=== PATIENT | female | born 1950 | race Caucasian/White ===

== ENCOUNTER 2017-07-29 07:42 | Outpatient (CLI) | payer MEDICARE, BC ==
--- NOTE | 2017-07-29 08:38 | CT ---
CT PULMONARY LUNG SCAN OF CHEST WITHOUT CONTRAST: Date: 07/29/17 HISTORY: 28 year smoking history. History of nicotine dependence. TECHNIQUE: Multiple contiguous axial images were obtained in a CT of the chest without contrast per low dose can cer screening protocol. Sagittal and coronal reformats were performed. FINDINGS: No pulmonary nodules or infiltrates are seen in the lungs. No pneumothorax or pleural effusion seen. The heart is normal in size. No hilar or mediastinal lymphadenopathy are present. There are calcified , nonenlarged mediastinal lymph nodes. Degenerative changes are seen in the spine. A spinal stimulation device is seen in the mid thoracic s pine. The chest wall soft tissues are unremarkable. Hardware is seen in the cervical spine. IMPRESSION: Lung-RADS category 1 - negative. POS: [facility]
== END 2017-07-29 07:43 | disposition home or self-care (01) ==
LOC: CT 07:42
PROVIDERS: ATTEND Internal Medicine
DX: Z87.891 Personal history of nicotine dependence (principal)
CPT/HCPCS: G0297

== ENCOUNTER 2017-09-11 15:21 | Outpatient (CLI) | payer MEDICARE, BC | END 2017-09-11 15:22 | disposition home or self-care (01) | LOC: BICMAMMO 15:21 | PROVIDERS: ATTEND Internal Medicine | DX: Z12.31 Encounter for screening mammogram for malignant neoplasm of breast (principal) | CPT/HCPCS: 77063; 77067 ==

== ENCOUNTER 2017-10-13 11:01 | Emergency (ER) | payer MEDICARE, BC | END 2017-10-13 11:46 | disposition home or self-care (01) | LOC: ERS 11:01 | DX: S61.412A Laceration without foreign body of left hand, initial encounter (principal); Z79.899 Other long term (current) drug therapy; W26.0XXA Contact with knife, initial encounter | CPT/HCPCS: 12002 ==

== ENCOUNTER 2018-01-13 08:03 | Outpatient (CLI) | payer MEDICARE, BC ==
--- NOTE | 2018-01-13 11:27 | RAD ---
BIPHASIC UPPER GI: HISTORY: A 67-year-old female with nausea, epigastric pain, and IBS. FINDINGS: The stomach is grossly normal. There is unobstructed flow of contrast through the esophagus and into the stomach, duodenum, and jejunum. A small hiatal hernia is present. No obstructing mass or stric ture is seen. There is a moderate-sized diverticulum arising from the superior wall of the third por tion of the duodenum. No definite GE reflux was demonstrated during the Valsalva maneuver or spontan eously. IMPRESSION: 1. Small hiatal hernia. 2. Moderate-sized duodenal diverticulum. POS: [facility]
== END 2018-01-13 08:04 | disposition home or self-care (01) ==
LOC: RAD 08:03
PROVIDERS: ATTEND Internal Medicine Gastroenterology
DX: K58.9 Irritable bowel syndrome, unspecified (principal); R10.13 Epigastric pain; R11.0 Nausea; M25.551 Pain in right hip; K44.9 Diaphragmatic hernia without obstruction or gangrene; K57.10 Diverticulosis of small intestine without perforation or abscess without bleeding; M25.552 Pain in left hip
CPT/HCPCS: 74247

== ENCOUNTER 2018-01-14 15:04 | Outpatient (CLI) | payer MEDICARE, BC | END 2018-01-14 15:05 | disposition home or self-care (01) | LOC: BICRAD 15:04 | PROVIDERS: ATTEND Internal Medicine | DX: M79.89 Other specified soft tissue disorders (principal); M24.675 Ankylosis, left foot; M19.072 Primary osteoarthritis, left ankle and foot; M21.42 Flat foot [pes planus] (acquired), left foot ==

== ENCOUNTER 2018-01-22 12:36 | Outpatient (CLI) | payer MEDICARE, BC ==
--- NOTE | 2018-01-22 14:25 | ULT ---
LEFT LOWER EXTREMITY ARTERIOVASCULAR DUPLEX WITH COLOR-FLOW, SPECTRAL, AND DOPPLER IMAGING: HISTORY: A 67-year-old female with left foot swelling and leg pain. TECHNIQUE: Examination performed from the groin to the ankle, including visualization of the common femoral vein , profunda femoral, superficial femoral, popliteal, anterior tibial, posterior tibial, and dorsalis p maddy arteries. FINDINGS: At the common femoral artery, the peak systolic velocity is borderline at 140 cm per second. There i s triphasic waveform throughout the entire left lower extremity, which is within normal limits. IMPRESSION: No hemodynamically significant stenosis. If there is persistent clinical concern for arteriovascular disease of the left lower extremity, foll ow-up CT angiogram might be considered. POS: [facility]
== END 2018-01-22 12:37 | disposition home or self-care (01) ==
LOC: ULT 12:36
PROVIDERS: ATTEND Internal Medicine
DX: M79.89 Other specified soft tissue disorders (principal); I73.9 Peripheral vascular disease, unspecified; R60.9 Edema, unspecified
CPT/HCPCS: 93922; 93923

== ENCOUNTER 2018-01-23 08:31 | Outpatient (CLI) | payer MEDICARE, BC ==
--- NOTE | 2018-01-23 15:43 | NM ---
RADIONUCLIDE GASTRIC EMPTYING SCAN 01/23/18 HISTORY: 67-year-old female with epigastric pain. RADIOPHARMACEUTICAL: 2 millicuries technetium 99m sulfur colloid administered orally in scrambled eggs. FINDINGS: There is 52% emptying of the ingested gastric contents at one hour, 40% emptying at two hours, 54% em ptying at three hours and 61% emptying at four hours. There is gastroesophageal reflux. IMPRESSION: Delayed gastric emptying. POS: [facility]
== END 2018-01-23 08:32 | disposition home or self-care (01) ==
LOC: NM 08:31
PROVIDERS: ATTEND Internal Medicine Gastroenterology
DX: R10.13 Epigastric pain (principal)
CPT/HCPCS: 78264; A9541

== ENCOUNTER 2018-08-04 07:31 | Outpatient (CLI) | payer MEDICARE, BC ==
--- NOTE | 2018-08-04 08:59 | CT ---
NONCONTRAST ENHANCED CT CHEST LOW DOSE CT SCANNING: History: Z12.2. History of 28 years of smoking. History of nicotine dependence. Comparison: 07-29-17 FINDINGS: Noncontrast enhanced CT of the chest was performed. No evidence of lung parenchymal masses or lesions seen. No evidence of newly developed lesions noted. No evidence of pleural lesions seen. There does appear to be some distal esophageal dilatation and possible mucosal thickening. Some minimal coronary artery calcifications seen. No definite evidence of lymphadenopathy seen. IMPRESSION: Lung RADS category 1 - negative exam. POS: [facility]
== END 2018-08-04 07:32 | disposition home or self-care (01) ==
LOC: CT 07:31
PROVIDERS: ATTEND Internal Medicine
DX: Z87.891 Personal history of nicotine dependence (principal)
CPT/HCPCS: G0297

== ENCOUNTER 2018-09-16 09:58 | Outpatient (CLI) | payer MEDICARE, BC ==
--- NOTE | 2018-09-16 14:59 | MMO ---
FILMS COMPARED: The present examination has been compared to prior imaging studies performed at [facility] on 06/24/2006, 09/03/2012 and 09/11/2017, and at [facility] on 01/29/2001, 12/09/2013 and 12/16/2014. MAMMOGRAM FINDINGS: There are scattered fibroglandular densities. There are benign appearing calcifications seen in both breasts. There are no suspicious masses, calcifications or areas of architectural distortion. IMPRESSION: CALCIFICATIONS IN BOTH BREASTS ARE BENIGN. A ROUTINE FOLLOW-UP MAMMOGRAM IN 1 YEAR IS RECOMMENDED. ACR BI-RADS Category 2 - Benign finding
== END 2018-09-16 09:59 | disposition home or self-care (01) ==
LOC: BICMAMMO 09:58
PROVIDERS: ATTEND Internal Medicine
DX: Z12.31 Encounter for screening mammogram for malignant neoplasm of breast (principal); R92.1 Mammographic calcification found on diagnostic imaging of breast
CPT/HCPCS: 77063; 77067

== ENCOUNTER 2018-11-04 21:47 | Emergency (ER) | payer MEDICARE, BC ==
[2018-11-05] MEDS ORDERED: HYDROcodone/Acetaminophen 10/325 mg Tablet ONE (01:49)
[2018-11-05] MEDS ORDERED: Diazepam 5 MG TAB ONE (02:58)
== END 2018-11-05 03:28 | disposition home or self-care (01) ==
LOC: ERS 21:47
DX: G89.29 Other chronic pain (principal); M54.5 Low back pain

== ENCOUNTER 2018-11-07 07:02 | Day surgery (SDC) | payer MEDICARE, BC ==
[2018-11-06 13:58] VITALS: BMI 23.6
--- NOTE | 2018-11-07 08:57 | RAD ---
Exam: Lumbar myelogram HISTORY: Lumbar spinal stenosis COMPARISON: 02/02/2014 FINDINGS: 2 views of lumbar spine associate professor of education radiograph demonstrates 5 lumbar type vertebral bodies. There is stable rightward curvature of the lumbar spine. On the lateral projection, no significant spondylolisthesis or spondylolysis. Extensive dorsal column stimulators are noted, incompletely evalu ated. The distal tips appear to be at the level lower thoracic spine. Successful lumbar puncture for intrathecal contrast administration. Total of 10 cc of Isovue-M 200 co ntrast was administered intrathecally. There are no immediate or postprocedure complications. Lumbar puncture was performed at the L3-L4 level. TECHNIQUE: Consent obtained performing lumbar puncture for intrathecal contrast administration, 40 aracelis mbar myelogram. Patient's back was evaluated. The L3-L4 level was deemed appropriate. Skin was prepped and draped in a sterile fashion. 1% lidocaine, buffered with sodium bicarbonate was used for local anesthesia. Under fluoroscopic guidance, a 22-gauge spinal needle was advanced into the CSF space. There is prompt flow of clear CSF to the hub of the needle. Via a short tubing catheter, a tot al of 10 cc of Isovue-M 200 contrast was administered intrathecally. No immediate or postprocedural complications IMPRESSION: Successful lumbar puncture for lumbar myelogram.
[2018-11-07] MEDS ORDERED: Prevnar 13-Val Conj/PF 0.5 ML SYRINGE IM ONE (09:00)
--- NOTE | 2018-11-07 10:40 | CT ---
POST MYELOGRAM LUMBAR SPINE CT: Date: 11/07/18 COMPARISON: 02/02/14. HISTORY: Lumbar spinal stenosis. FINDINGS: There are five lumbar-type vertebral bodies. Lumbar spine vertebral body height is maintained. There is no fracture. Mild leftward curvature of the lower lumbar spine. Vacuum disc phenomenon at L5-S1, as well as T11-T12. Stable 1.0 cm nodule in the left adrenal gland, likely representing a small adenoma. Visualized alime ntary canal is unremarkable. No retroperitoneal mass, lymphadenopathy, or hematoma. Conus medullaris terminates at the inferior aspect of T12. T11-T12: No high grade central canal stenosis or high grade neural foraminal narrowing. T12-L1; No significant central canal stenosis or foraminal narrowing. L1-L2: No significant central canal stenosis. Right neural foramen and left neural foramen are paten t. L2-L3: No significant central canal stenosis. Neural foramina are patent bilaterally. L3-L4: Mild loss of disc space height. Ligamentum flavum thickening and facet hypertrophy do not cau se any significant central canal stenosis. However, there is narrowing of the right subarticular zone secondary to disc material and posterior element hypertrophy. There is mass effect without obscurati on of the traversing right L4 nerve root. Mild to moderate right foraminal narrowing. Left neural for amen is minimally narrowed. L4-L5: No significant posterior disc abnormality. No significant central canal stenosis. Moderate ri ght and moderate to severe left foraminal narrowing. L5-S1: Vacuum disc phenomenon. No significant central canal stenosis. Moderate bilateral foraminal n arrowing. IMPRESSION: 1. Degenerative changes of the lumbar spine as above. There is no evidence of high grade central can al stenosis. However, there is narrowing of the right subarticular zone at L3-L4 with some mass effec t upon the traversing right L4 nerve root. The degree of stenosis in the right subarticular zone has slightly progressed when compared to the previous examination. 2. There are varying degrees of neural foraminal narrowing as detailed above. POS: [facility]
== END 2018-11-07 10:10 | disposition home or self-care (01) ==
LOC: RAD 07:02
PROVIDERS: ATTEND Nurse Practitioner Family
PROC: B02B1ZZ Computerized Tomography (CT Scan) of Spinal Cord using Low Osmolar Contrast (ICD-10-PCS; principal; 2018-11-07)
DX: M48.061 Spinal stenosis, lumbar region without neurogenic claudication (principal); Z79.899 Other long term (current) drug therapy; Z88.0 Allergy status to penicillin; Z88.5 Allergy status to narcotic agent; Z96.89 Presence of other specified functional implants
CPT/HCPCS: 62304; 72132

== ENCOUNTER 2019-08-04 14:32 | Inpatient (IN) | payer MEDICARE, BC ==
--- NOTE | 2019-08-04 15:14 | CT ---
CT HEAD WITHOUT IV CONTRAST COMPARISON: 07/06/2015 HISTORY: Headache the started on Saturday. Headache is greater than typical migraine headache. TECHNIQUE: Axial CT imaging at 5 mm intervals from vertex through skull base without contrast FINDINGS: There is an oval-shaped area of increased density suggestive of a hemorrhage near the expected locati on of the ACOM position of the anterior cerebral artery in the midline. This area of hemorrhage measures 18 mm x 8 mm. Slight adjacent vasogenic edema is noted. No additional area of hemorrhage is identified. There is a small low-density focus seen within the anterior aspect left thalamus likely related to a lacunar infarction of indeterminate age. Low-density focus is seen in the inferior aspect left basal ganglia also seen on prior study in 2014 and may represent a remote lacunar infarction. There i s no evidence of an acute cortical infarction, mass effect, or midline shift. Visualized paranasal sinuses are clear. Osseous structures appear intact. IMPRESSION: 1. Midline hemorrhage near the ACOM position anterior cerebral artery which could be related to hemor rhage secondary to aneurysm. CT angiogram head is recommended for further evaluation.. 2. 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 3. Above findings discussed with Tosin Hutchinson, physician's admissions assistant in the emergency department on 07/16 at 1506 hours.
[2019-08-04] MEDS ORDERED: Iopamidol-370 76% 500 ML 1 ML ONE (15:23)
[2019-08-04] MEDS ORDERED: niCARdipine 25 MG in Sodium Chloride 0.9% 250 ML 240 ML IVPB SCH (15:30)
[2019-08-04 15:34] LABS: Hemoglobin 14.2 g/dL (12.0-16.0); Mean Corpuscular HGB CONC 32.5 g/dL (32.0-36.0); Mean Corpuscular Hemoglobin 32.2 pg (27.0-31.0); Mean Corpuscular Volume 98.9 fL (78.0-98.0); Mean Platelet Volume 7.3 fL (7.4-10.4); Platelet Count 343 thou/uL (130-400); RBC Distribution Width 12.6 % (11.5-14.5); Red Blood Cell (RBC) Count 4.43 mill/uL (4.20-5.40)
[2019-08-04 15:36] LABS: ALT (SGPT) 80 U/L (8-55); AST (SGOT) 44 U/L (5-34); Albumin 4.3 g/dL (3.4-4.8); Alkaline Phosphatase 122 U/L (40-110); Anion Gap 11 mmol/L (10-20); BUN (Urea Nitrogen) 8 mg/dL (9.8-20.1); Bilirubin, Total 0.3 mg/dL (0.2-1.2); Calc. Creatinine Clearance 0 mL/min (70-130); Calcium 9.6 mg/dL (7.8-10.44); Carbon Dioxide 28 mmol/L (23-31); Chloride 105 mmol/L (98-107); Estimated GFR-MDRD 65; Globulin 2.8 g/dL (2.4-3.5); Glucose 111 mg/dL (83-110); Protein, Total 7.1 g/dL (6.0-8.3); Sodium 140 mmol/L (136-145)
[2019-08-04 15:43] LABS: INR-International Normal Ratio 0.9; PTT 27.6 SEC (22.9-36.1); Prothrombin Time 12.4 SEC (12.0-14.7)
--- NOTE | 2019-08-04 15:48 | CT ---
CT ANGIOGRAM OF BRAIN WITH CONTRAST AND 3D REFORMATTED IMAGING: DATE: 08/04/2019 3:07 PM HISTORY: Subarachnoid hemorrhage concern for a comminuted aneurysm COMPARISON: CT of the brain dated August 04, 2019 TECHNIQUE: Iodinated IV contrast injected. Bolus chasing technique scan performed through the head. Coronal and sagittal 3-D MIP reconstructions. FINDINGS: Right ICA: Patent. Right MCA: Patent. Right HERNAN: Patent. ACOM: There is an 8.3 x 4.6 x 5.7 mm bilobed aneurysm protruding off the superior margin of the ante rior communicating artery. The subarachnoid hemorrhage is centered along the right lateral aspect of the aneurysm, extending into the anterior interhemispheric fissure. Left ICA: Patent. Left MCA: Patent. Left HERNAN: Patent. PCOMs: Left P-comm is not seen which is likely developmental variant. The right P-comm is patent. Vertebral arteries: The right vertebral artery is diminutive. Left vertebral artery is dominant. Bot h vertebral arteries appear patent. Basilar Artery: Patent. sandfill operator surface: Patent. Incidentals: None. IMPRESSION: 1. 8.3 x 4.6 x 5.7 mm bilobed aneurysm protruding off the superior margin of the anterior communicati ng artery with adjacent subarachnoid hemorrhage.
[2019-08-04 16:05] LABS: Band 3 % (5-11); Eosinophils 4 % (0-10); Lymphocytes 10 % (21-51); MDiff Complete? YES; Macrocytosis SLIGHT = 6-15 cells (100X) (0-5/hpf); Monocytes 8 % (0-10); Neutrophil 32 % (42-75); Platelet Morphology Comment Appears Adequate; Polychromasia SLIGHT = 2-3 cells (100X) (0-2/hpf); Reactive Lymphocytes 42 % (0-10); Reflex for Review?? YES
[2019-08-04] MEDS ORDERED: Acetaminophen 325 MG TAB PO PRN (16:58)
[2019-08-04] MEDS ORDERED: Labetalol HCl 100 MG/20 ML VIAL SLOW IVP PRN (16:58)
[2019-08-04] MEDS ORDERED: diphenhydrAMINE 50 MG CAP PO PRN (16:58)
[2019-08-04] MEDS ORDERED: Docusate 100 MG CAP PO PRN (16:58)
[2019-08-04] MEDS ORDERED: hydrALAZINE 20 MG/ML VIAL SLOW IVP PRN (16:58)
[2019-08-04 18:22] VITALS: BMI 22.7
[2019-08-04] MEDS: niMODipine 30 MG CAP PO SCH ×2 (18:40→21:40)
[2019-08-04] MEDS: Sodium Chloride 0.9% 1,000 ML IV SCH (18:41)
[2019-08-04] MEDS: Famotidine 20 MG TAB PO SCH (21:40)
--- NOTE | 2019-08-04 23:21 | CT ---
Exam: Head CT without contrast HISTORY: Subarachnoid hemorrhage. Follow-up exam. COMPARISON: 08/04/2019 2:59 PM FINDINGS: Hemorrhage: Redemonstration of essentially stable hemorrhage just to the right of midline, measuring 1.5 x 0.4 cm. Small focus of subarachnoid hemorrhage is noted in the interpeduncular cistern. Small focus of hemorrhage is also noted in the left Sylvian fissure. Stable subarachnoid blood along the mi dline interhemispheric sulci, anteriorly. No new areas of intracranial hemorrhage are appreciated. Brain parenchyma: Cortical leggett-white matter differentiation is preserved. No mass effect or midline shift. Basilar cisterns are patent.Stable white matter hypodensities due to chronic small vessel ischemic change Ventricular system: No change in the size of ventricular system. No evidence of hydrocephalus. Calvarium: Intact. Sinuses and mastoid air cells: Adequate aeration. IMPRESSION: Essentially stable intracranial hemorrhage. Transcribed Date/Time: 08/05/2019 11:50 PM
[2019-08-05] MEDS: niMODipine 30 MG CAP PO SCH ×4 (02:38→15:25)
[2019-08-05] MEDS: Sodium Chloride 0.9% 1,000 ML IV SCH ×2 (02:39→10:19)
[2019-08-05 04:04] LABS: #Basophils 0.1 thou/uL (0.0-0.2); #Eosinphils 0.2 thou/uL (0.0-0.7); #Lymphocytes 4.2 thou/uL (1.20-3.40); #Monocytes 0.8 thou/uL (0.11-0.59); #Neutrophils 3.6 thou/uL (1.40-6.50); %Basophils 1.4 % (0.0-1.0); %Eosinophils 2.8 % (0.0-10.0); %Lymphocytes 46.5 % (21.0-51.0); %Monocytes 8.6 % (0.0-10.0); %Neutrophils 40.7 % (42.0-75.0); Hemoglobin 13.3 g/dL (12.0-16.0); Mean Corpuscular HGB CONC 32.1 g/dL (32.0-36.0); Mean Corpuscular Hemoglobin 31.6 pg (27.0-31.0); Mean Corpuscular Volume 98.6 fL (78.0-98.0); Mean Platelet Volume 7.4 fL (7.4-10.4); Platelet Count 319 thou/uL (130-400); RBC Distribution Width 12.5 % (11.5-14.5); Red Blood Cell (RBC) Count 4.21 mill/uL (4.20-5.40); White Blood Cell (WBC) Count 8.9 thou/uL (4.8-10.8)
[2019-08-05 04:24] LABS: Anion Gap 10 mmol/L (10-20); BUN (Urea Nitrogen) 6 mg/dL (9.8-20.1); Calc. Creatinine Clearance 90 mL/min (70-130); Calcium 8.5 mg/dL (7.8-10.44); Carbon Dioxide 25 mmol/L (23-31); Chloride 109 mmol/L (98-107); Estimated GFR-MDRD 87; Glucose 103 mg/dL (83-110); Potassium 3.5 mmol/L (3.5-5.1); Sodium 140 mmol/L (136-145)
--- NOTE | 2019-08-05 07:26 | HP ---
HISTORY OF PRESENT ILLNESS: Ms. Pradhan is a very pleasant 69-year-old woman, who presents to the emergency department at [facility] for evaluation of 48 hours of significant headache. She states onset immediately when getting up out of bed in the middle of night and had a pulsatile pounding headache worse than she has ever had. She has also had migraines since age 11 and states that this is far worse and far different than any of those. CT scan performed in the department reveals what appears to be subarachnoid and intraparenchymal hemorrhage. 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 Otherwise, she is awake and providing full history to me. She denies taking any blood thinners currently other than occasional Aleve, but did not take it recently. PAST MEDICAL HISTORY: Significant for unspecified endocrine illness, fibromyalgia, IBS, migraine headaches, restless legs syndrome, hypothyroidism. PAST SURGICAL HISTORY: Tonsillectomy, cervical decompression, carpal tunnel. Bilateral knees and feet, unspecified. Dorsal column stimulator placement, appendectomy, cholecystectomy, hysterectomy, hiatal hernia x3. CURRENT MEDICATIONS: 1. Methocarbamol. 2. Linzess. 3. Breo Ellipta. 4. Triamcinolone. 5. Levothyroxine. 6. Gabapentin. 7. Venlafaxine. 8. Vitamin B12. ALLERGIES: AMOXICILLIN AND HYDROCODONE. PHYSICAL EXAMINATION: The patient is alert and oriented x3. GCS 15. All movements of bilateral upper and lower extremities are intact and 5/5 strength. Pupils are equal, round, and reactive to light. Extraocular movements are intact. Cranial nerves 2 through 12 are grossly intact and normally functioning. ASSESSMENT: Aneurysmal subarachnoid hemorrhage. PLAN: At this time, we will admit the patient to the ICU under our service with q.1 hour neuro checks. Systolic pressures need to be held under 140. We will repeat a CT scan around 10 or 11 o'clock this evening not expanding treatment otherwise. Consultations ordered to Hospitalist Medicine and to the Pulmonary Critical Care Service. We will start her on high-flow normal saline. She will likely need a urinary catheter so that we can track the in's and out's q.1 hour. I discussed with the patient and at bedside that she will need a traditional angiogram in the morning, most likely coiling of this aneurysm with Dr. Lovelace. Will likely meet him in the morning and discuss this plan further with them. The patient has expressed understanding. Head of bed going to be elevated 30 degrees. She can have sips of water this evening, but at midnight will need to be held n.p.o. entirely. This plan was discussed with Dr. Lovelace who is in agreement. Job ID: [id number]
[2019-08-05] MEDS ORDERED: Heparin (Artline) 1,500 ML ONE (08:20)
[2019-08-05] MEDS ORDERED: Heparin 10,000 UNITS/1 ML VIAL ONE (08:21)
[2019-08-05] MEDS ORDERED: Prevnar 13-Val Conj/PF 0.5 ML SYRINGE IM ONE (09:00)
[2019-08-05] MEDS: Famotidine 20 MG TAB PO SCH (10:19)
[2019-08-05] MEDS ORDERED: Fentanyl 100 MCG/2 ML VIAL ONE (11:08)
--- NOTE | 2019-08-05 11:09 | PRG ---
DATE OF SERVICE: 08/05/2019 Ms. Pradhan is a 69-year-old female, admitted yesterday afternoon after experiencing 2 days of significant headache. She does have a history of migraines. She is contended with for decades. This headache was atypical. The headache began on Saturday of this week and did not relent, and so she eventually presented to the ER yesterday, which was Saturday. She underwent a CT examination of the head, which showed evidence of subarachnoid hemorrhage and a small intraparenchymal hematoma at the location of the anterior communicating segment. She subsequently had a CT angiogram performed, which confirmed suspicions of an anterior communicating artery region aneurysm. She was then admitted to the ICU for ongoing evaluation and management. The initial head CT showed no evidence concerning for hydrocephalus. Her neurologic exam has been stable and appears to be baseline for her. She is alert and oriented x5. She moves all 4 extremities quite well. I discern no abnormality on her exam. I met with her and her this morning and discussed again the imaging, the diagnosis, and treatment options. I discussed with them both open craniotomy as well as endovascular treatment of the aneurysm and then our preference would be to move first toward endovascular treatment. I discussed with her all the risks, benefits, and alternatives of the procedure, namely the risks of most significance would be rupture of the aneurysm during treatment and a thromboembolic event during or shortly after treatment or potential prolapse of coils into the parent artery causing an ischemic stroke. I also reviewed with her many of the comorbidities associated with aneurysmal subarachnoid hemorrhage, for which she will need to continue our hospitalization and be watchful for which would include hydrocephalus and vasospasm. The plan this morning is to bring her down for cerebral angiography, and if morphology and size allow, endovascular coiling of the aneurysm. She will be placed under general anesthesia. She will return to the ICU thereafter. Job ID: [id number]
[2019-08-05] MEDS ORDERED: Phenylephrine HCL 10 MG/ML VIAL ONE (12:34)
[2019-08-05] MEDS ORDERED: PROPOFOL 200 MG/20 ML VIAL ONE (12:47)
[2019-08-05] MEDS ORDERED: Glycopyrrolate 0.2 MG/ML 5 ML SYRINGE ONE (12:47)
[2019-08-05] MEDS ORDERED: Rocuronium Bromide 10 MG/ML (10ML VIAL) ONE (12:47)
[2019-08-05] MEDS ORDERED: PHENYLEPHRINE-NS 100 MCG/ML 10 ML SYRINGE ONE (12:47)
[2019-08-05] MEDS ORDERED: ePHEDrine/0.9% NaCl/PF SYRINGE 50 mg/10 ml ONE (12:47)
[2019-08-05] MEDS ORDERED: Lidocaine 1% PF 5 ML VIAL ONE (12:47)
--- NOTE | 2019-08-05 13:31 | PDOC.HOSPP ---
- Subjective Encounter Date: 08/05/19 Encounter Time: 12:00 Subjective: awake, headache is better is moving all extremities no chest pain or palp or sob at bedside Had sudden onset of thunderclap headache on saturday, was unlike her usual migraine headaches Quit smoking 6yrs back prior to which 1/2 pack x 30 yrs, no alc or drug use mother at 94 yrs from natural causes father at 56yrs from alc use and complications she ambulate with out any assitive devices sees for prolapsed disc issues prior stress test done with was normal per patient (yrs ago?) - Objective Vital Signs & Weight: Vital Signs (12 hours) Temp Pulse Ox 08/05/19 08:00 96 08/05/19 07:00 98.3 F 08/05/19 04:00 98.2 F Weight Weight 161 lb 9.581 oz Most Recent Monitor Data Heart Rate from ECG 60 NIBP 100/81 NIBP BP-Mean 87 Respiration from ECG 13 SpO2 96 I&O: 08/04/19 08/05/19 08/06/19 06:59 06:59 06:59 Intake Total 1575 0 Output Total 800 220 Balance 775 -220 Result Diagrams: 08/05/19 03:55 08/05/19 03:55 Hospitalist ROS - Review of Systems Constitutional: reports: malaise. denies: fever, chills, sweats, weakness, other Eyes: reports: vision change ENT: denies: ear pain, ear discharge, nose pain, nose discharge, nose congestion , mouth pain, mouth swelling, throat pain, throat swelling, other Respiratory: reports: cough, dry. denies: shortness of breath, hemoptysis, SOB with excertion, pleuritic pain, sputum, wheezing, other Cardiovascular: denies: chest pain, palpitations, orthopnea, paroxysmal noc. dyspnea, edema, light headedness, other Gastrointestinal: denies: nausea, vomiting, abdominal pain, diarrhea, constipation, melena, hematochezia, other Genitourinary: denies: dysuria, frequency, incontinence, hematuria, retention, other Musculoskeletal: denies: neck pain, shoulder pain, arm pain, back pain, hand pain, leg pain, foot pain, other Skin: denies: rash, lesions, ching, bruising, other Neurological: reports: weakness All other systems reviewed; all pertinent +/- noted in HPI/Subj - Medication Medications: Active Medications Generic Name Dose Route Start Last Admin Trade Name Liv PRN Reason Stop Dose Admin Famotidine 20 mg 08/04/19 21:00 08/05/19 10:19 Pepcid PO Not Given Q12HR CAYLA Sodium Chloride 1,000 mls @ 125 mls/hr 08/04/19 17:00 08/05/19 10:19 Normal Saline 0.9% IV Not Given .Q8H CAYLA Nimodipine 60 mg 08/04/19 17:00 08/05/19 10:19 Nimodipine PO Not Given Q4HR CAYLA - Exam General Appearance: NAD, awake alert Eye: PERRL, anicteric sclera ENT: no oropharyngeal lesions, moist mucosa Neck: symmetric, no JVD Heart: RRR, no murmur Respiratory: no wheezes, no rales Gastrointestinal: soft, non-tender, non-distended, normal bowel sounds Extremities: no cyanosis, no edema Neurological: cranial nerve grossly intact, no focal deficits Psychiatric: normal affect, A&O x 3 Hosp A/P (1) SAH (subarachnoid hemorrhage) Code(s): I60.9 - NONTRAUMATIC SUBARACHNOID HEMORRHAGE, UNSPECIFIED Status: Acute (2) acom aneurysm Status: Acute (3) ICH (intracerebral hemorrhage) Code(s): I61.9 - NONTRAUMATIC INTRACEREBRAL HEMORRHAGE, UNSPECIFIED Status: Acute Qualifiers: Intracerebral hemorrhage etiology: nontraumatic Cerebral hemorrhage location: cerebral hemisphere, subcortical portion Laterality: right Qualified Code(s): I61.0 - Nontraumatic intracerebral hemorrhage in hemisphere, subcortical (4) COPD (chronic obstructive pulmonary disease) Status: Suspected Qualifiers: COPD type: chronic bronchitis (5) Chronic back pain Code(s): M54.9 - DORSALGIA, UNSPECIFIED; G89.29 - OTHER CHRONIC PAIN Status: Chronic Qualifiers: Back pain location: low back pain (6) IBS (irritable bowel syndrome) Status: Chronic Qualifiers: Irritable bowel syndrome type: with constipation Qualified Code(s): K58.1 - Irritable bowel syndrome with constipation (7) Hypothyroidism Code(s): E03.9 - HYPOTHYROIDISM, UNSPECIFIED Status: Acute (8) Dyslipidemia Code(s): E78.5 - HYPERLIPIDEMIA, UNSPECIFIED Status: Acute (9) Anxiety disorder Code(s): F41.9 - ANXIETY DISORDER, UNSPECIFIED Status: Acute Qualifiers: Anxiety disorder type: generalized anxiety disorder Qualified Code(s): F41.1 - Generalized anxiety disorder - Plan is going for coiling of Ant communicating art aneurysm by today stable ich/sah, no focal motor deficits BP is stable is npo for procedure continue current prn htn meds as ordered will f/u
[2019-08-05] MEDS ORDERED: Iopamidol 370 76% 100 ML VIAL ONE (13:56)
[2019-08-05 14:02] VITALS: TEMP 98
--- NOTE | 2019-08-05 14:39 | CON ---
DATE OF CONSULTATION: HISTORY OF PRESENT ILLNESS: This is a 69-year-old female, who is in the ICU, status post intracerebral hemorrhage, reason for consultation. She is due to see Neurosurgery. Her at the bedside states she had a headache on Saturday, history of migraine. So, apparently, called a doctor on Saturday as symptoms are not any better, persistent headache, brought to the ER, where it showed an intracerebral hemorrhage. She is a nonsmoker. She has multiple medical problems. PAST MEDICAL HISTORY: Pertinent for; 1. Hypothyroidism. 2. Fibromyalgia. 3. Migraine headaches. 4. Irritable bowel syndrome. 5. Anxiety. PAST SURGICAL HISTORY: Carpal tunnel, bilateral knees and feet, nerve stimulation, gallbladder, appendix, hysterectomy, hiatal hernia. HOME MEDICATIONS: Include; 1. Linzess. 2. Breo inhaler 100/25 one puff a day. 3. Synthroid 50. 4. Gabapentin 600 four times a day. 5. Venlafaxine 75 once a day. 6. B12. ALLERGIES: AMOXIL AND HYDROCODONE. PHYSICAL EXAMINATION: GENERAL: She is awake, alert, and responsive. VITAL SIGNS: Stable. Sats on room air, pulse , respirations 18, blood pressure 130/80. CHEST: No wheezing or crackles. CARDIAC: Normal S1, S2. No gallops. ABDOMEN: No masses. LABORATORY DATA: Otherwise shows 8000 white count, H and H of 13 and 41, platelet count is normal. Renal function is normal. Sodium is normal. Liver function, slightly elevated. AST 80. DIAGNOSTIC DATA: CT angio of head shows 8.3 x 4.6 x 5.7 mm bilobed aneurysm protruding in the superior margin of the anterior communicating artery. IMPRESSION: 1. Intracerebral hemorrhage, frontal, secondary to anterior communicating aneurysm. 2. Hypothyroidism. 3. Fibromyalgia. 4. Chronic pain. 5. Long-term smoker, quit 20 years ago. PLAN: Input from Neurosurgery. Pulmonary will follow in the ICU. Consultation note, 70 minutes, 50% direct patient care. Job ID: [id number]
--- NOTE | 2019-08-06 22:49 | CCL ---
DATE OF SERVICE: 08/05/19 SURGEON: Mehul Lovelace M.D. STAND GRINDER: None. INDICATION: Aneurysmal subarachnoid hemorrhage. 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 PROCEDURE: Cerebral angiography with intention to treat. ANESTHESIA: General. TECHNIQUE: The patient is brought to the angiogram suite and placed under general anesthesia. She was placed on the table in the supine position. Both groins were prepped and draped in the usual sterile fashion. 1% lidocaine was used to inject the right groin. A micropuncture set was used to gain access to the right common femoral artery. Using a Seldinger technique, 5 Sinhala shuttle select catheter passed over a long diagnostic catheter passed a Manpackszen guide wire was advanced into the aortic arch where the left internal carotid artery was selectively catheterized. An AP and lateral angiogram as well as a 3D rotational angiogram were successfully performed. The transfer of images from the 3D system to our work station would not function. As such, we could not reconfigure an orientation for treatment and therefore could not safely proceed. This was despite numerous efforts to remedy the problem. As such, I made the decision to abort the procedure with the intent of now transferring her to an outside facility. IMPRESSION: The patient underwent successful angiography. There is no successful treatment performed. Angiography confirms the presence of an anterior communicating artery aneurysm with what appears to be at least two daughter sacs emanating along the inferior lobule. The aneurysm measures approximately 8 x 7 mm. The relative orientation of the aneurysm with respect to the A2 segment is difficult to discern without 3D reconstruction. [facility]ENTER[facility]
== END 2019-08-05 15:23 | disposition short-term general hospital (02) | DRG 66 ==
LOC: ERS 14:32 → CCU 17:05
PROVIDERS: ADMIT Neurological Surgery; ATTEND Emergency Medicine
PROC: B31NZZZ Fluoroscopy of Other Upper Arteries (ICD-10-PCS; principal; 2019-08-05)
DX: I60.2 Nontraumatic subarachnoid hemorrhage from anterior communicating artery (principal); G43.909 Migraine, unspecified, not intractable, without status migrainosus; M79.7 Fibromyalgia; E03.9 Hypothyroidism, unspecified; Z90.49 Acquired absence of other specified parts of digestive tract; Z90.710 Acquired absence of both cervix and uterus; Z98.890 Other specified postprocedural states; Z79.899 Other long term (current) drug therapy; Z88.6 Allergy status to analgesic agent; Z88.8 Allergy status to other drugs, medicaments and biological substances; R40.2412 Glasgow coma scale score 13-15, at arrival to emergency department; F41.9 Anxiety disorder, unspecified; G89.29 Other chronic pain; Z87.891 Personal history of nicotine dependence; K58.1 Irritable bowel syndrome with constipation; J42 Unspecified chronic bronchitis
CPT/HCPCS: 36216; 36415; 70450; 70496; 80048; 80053; 85025; 85060; 85347; 85610; 85730; 93005; C1887; J1644; J2001; J2370; J2704; J3010; J7050; Q9967

== ENCOUNTER 2019-08-19 12:37 | Outpatient (CLI) | payer MEDICARE, BC ==
--- NOTE | 2019-08-19 14:25 | RAD ---
3 VIEWS SACRUM/COCCYX: Date: 08/19/2019 COMPARISON: None. HISTORY: Sacral pain. FINDINGS: 3 views of the sacrum/coccyx shows no evidence of sacral or coccygeal fracture. There is right sacroi liac hardware. A spinal stimulation device is partially visualized. Degenerative changes are seen in the lower lumbosacral spine. IMPRESSION: 1. No significant sacral abnormality. 2. Postsurgical changes from right sacroiliac fusion. POS: CET
== END 2019-08-19 12:38 | disposition home or self-care (01) ==
LOC: BICRAD 12:37
PROVIDERS: ATTEND Internal Medicine
DX: M53.3 Sacrococcygeal disorders, not elsewhere classified (principal); Z98.1 Arthrodesis status
CPT/HCPCS: 72220

== ENCOUNTER 2019-09-10 07:55 | Outpatient (CLI) | payer MEDICARE, BC ==
--- NOTE | 2019-09-10 08:38 | CT ---
CT Pulmonary Lung Scan History: Low dose CT. Personal history of nicotine dependence Comparison: Chest CT August 04, 2018 Findings: Lung screening specific (lung-rest): Negative. No suspicious pulmonary nodules. Potentially significant incidentals (lung RADS category S): Edema in the lesser sac around the pancre as. Pulmonary incidentals: Mild emphysema. No pneumothorax. No effusion. [place] effect common bile duct. Small sliding hiatal hernia. Impression: 1. Lung RADS category 2: Benign appearance or behavior. Recommend follow-up screening CT in 12 months . 2. Lung RADS category S: Mild peripancreatic edema in the lesser sac. Follow-up CT abdomen pelvis may be beneficial. Recommend clinical correlation for pancreatitis.
== END 2019-09-10 07:56 | disposition home or self-care (01) ==
LOC: CT 07:55
PROVIDERS: ATTEND Internal Medicine
DX: Z12.2 Encounter for screening for malignant neoplasm of respiratory organs (principal); Z87.891 Personal history of nicotine dependence; K86.89 Other specified diseases of pancreas
CPT/HCPCS: G0297

== ENCOUNTER 2019-09-11 12:00 | Outpatient (CLI) | payer MEDICARE, BC ==
[2019-09-11 13:18] LABS: Band 4 % (5-11); Eosinophils 3 % (0-10); Hemoglobin 14.8 g/dL (12.0-16.0); Lymphocytes 31 % (21-51); MDiff Complete? YES; Macrocytosis SLIGHT = 6-15 cells (100X) (0-5/hpf); Mean Corpuscular HGB CONC 34.3 g/dL (32.0-36.0); Mean Corpuscular Hemoglobin 33.8 pg (27.0-31.0); Mean Corpuscular Volume 98.6 fL (78.0-98.0); Mean Platelet Volume 7.3 fL (7.4-10.4); Monocytes 4 % (0-10); Neutrophil 35 % (42-75); Platelet Count 409 thou/uL (130-400); Platelet Morphology Comment Appears Increased; Polychromasia SLIGHT = 2-3 cells (100X) (0-2/hpf); RBC Distribution Width 12.6 % (11.5-14.5); Reactive Lymphocytes 23 % (0-10); Red Blood Cell (RBC) Count 4.37 mill/uL (4.20-5.40); Target Cells SLIGHT = 2-5 cells (100X) (0-1/hpf); White Blood Cell (WBC) Count 9.2 thou/uL (4.8-10.8)
[2019-09-11 13:21] LABS: ALT (SGPT) 27 U/L (8-55); AST (SGOT) 19 U/L (5-34); Albumin 4.6 g/dL (3.4-4.8); Alkaline Phosphatase 109 U/L (40-110); Anion Gap 15 mmol/L (10-20); BUN (Urea Nitrogen) 11 mg/dL (9.8-20.1); Bilirubin, Total 0.3 mg/dL (0.2-1.2); Calc. Creatinine Clearance 0 mL/min (70-130); Carbon Dioxide 27 mmol/L (23-31); Chloride 104 mmol/L (98-107); Estimated GFR-MDRD 69; Gamma GT (GGT) 71 U/L (9-36); Globulin 2.6 g/dL (2.4-3.5); Glucose 97 mg/dL (83-110); Lipase 20 U/L (8-78); Potassium 4.6 mmol/L (3.5-5.1); Protein, Total 7.2 g/dL (6.0-8.3); Sodium 141 mmol/L (136-145)
--- NOTE | 2019-09-11 15:43 | CT ---
CT ABDOMEN AND PELVIS WITH IV AND ORAL CONTRAST: HISTORY: Abdominal pain, unspecified abdominal location. Concern for pancreatitis. COMPARISON: CT abdomen or 12/19/2016. FINDINGS: There are mild dependent changes in the lung bases. The patient is post cholecystectomy. [place] effect causing prominence of the biliary tracts. The liver is otherwise unremarkable. The spleen, p ancreas, adrenal glands and kidneys are normal. The renal diverticulum arising from the third portio n of the duodenum is again seen. No peripancreatic fluid collections are identified. There is good contrast enhancement of the pancreas. There is ground-glass attenuation of the mesentery (soledad mesentery). There small bowel loops are not abnormally dilated. No free air, free fluid, or lymphadenopathy is s een in the abdomen or pelvis. There are vascular calcifications without evidence of aneurysmal dilat ation of the abdominal aorta. There is colonic diverticulosis without diverticulitis. There are degenerative changes in the spine. The postop changes at the GE junction are redemonstrated. No portosplenic thrombosis is seen. No abnormally loculated fluid collection is identified. There is questionable apple core lesion at the rectosigmoid junction on the coronal views. IMPRESSION: 1. No evidence of complications of pancreatitis. 2. 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 3. Colonic diverticulosis. 4. Questionable apple core lesion in the rectosigmoid. Further evaluation with colonoscopy is recom mended. CODE T POS: OFF
== END 2019-09-11 12:01 | disposition home or self-care (01) ==
LOC: SCSCT 12:00
PROVIDERS: ATTEND Internal Medicine
DX: R10.9 Unspecified abdominal pain (principal); K57.30 Diverticulosis of large intestine without perforation or abscess without bleeding
CPT/HCPCS: 36415; 74177; 80053; 82977; 83690; 85025

== ENCOUNTER 2020-02-10 17:41 | Emergency (ER) | payer MEDICARE, BC ==
--- NOTE | 2020-02-10 18:47 | RAD ---
Exam: 3 views sacrum and coccyx COMPARISON: 08/19/2019 HISTORY: Fall. Pain. FINDINGS: Visualized sacral ala are preserved. No definite acute fracture Redemonstration of a spinal stimulator generator projecting over the posterior left gluteal soft tiss ues. Stable fusion hardware bridging the right SI joint. IMPRESSION: No fracture.
--- NOTE | 2020-02-10 18:48 | RAD ---
Exam: One view pelvis HISTORY: Fall. Pain. FINDINGS: Uncomplicated hardware Rossing the right SI joint. Right SI joint is still patent. Unremark able left SI joint Visualized sacral ala are preserved Intact pelvis Intact bilateral obturator rings Symmetric hip joint spaces No evidence of a left or right hip fracture on this AP projection IMPRESSION: No fracture.
== END 2020-02-10 19:28 | disposition home or self-care (01) ==
LOC: ERS 17:41
DX: S30.0XXA Contusion of lower back and pelvis, initial encounter (principal); E03.9 Hypothyroidism, unspecified; G43.909 Migraine, unspecified, not intractable, without status migrainosus; Z79.899 Other long term (current) drug therapy; W19.XXXA Unspecified fall, initial encounter
CPT/HCPCS: 72170; 72220

== ENCOUNTER 2020-03-17 13:43 | Outpatient (CLI) | payer MEDICARE, BC ==
--- NOTE | 2020-03-23 09:27 | CCLSPC ---
PROCEDURE: Noninvasive arterial study using Doppler waveform analysis and segmental limb pressures. Admits to rest pain and claudication after half a block. Resting arterial study of the right leg reveals normal waveforms at all levels with an ankle-arm index of 1.14. Similar findings on the left with waveform analysis being normal and ankle-arm index being 1.0. This would be considered a normal resting arterial study of the lower extremities. If vascular claudication is suspected, further evaluation would be needed. However, this study would be inconsistent with any ischemic rest pain. Job ID: [id number]
== END 2020-03-17 13:44 | disposition home or self-care (01) ==
LOC: ULT 13:43
PROVIDERS: ATTEND Internal Medicine
DX: I73.9 Peripheral vascular disease, unspecified (principal); I25.10 Atherosclerotic heart disease of native coronary artery without angina pectoris; R09.89 Other specified symptoms and signs involving the circulatory and respiratory systems; M79.604 Pain in right leg; M79.605 Pain in left leg
CPT/HCPCS: 93922

== ENCOUNTER 2020-03-31 07:43 | Outpatient (CLI) | payer MEDICARE, BC ==
--- NOTE | 2020-03-31 08:30 | BD ---
EXAM: DEXA bone density examination HISTORY: 69-year-old postmenopausal female for screening COMPARISON: 02/20/2017 FINDINGS: L1--bone mineral density 1.114 g/sq cm; T score 1.1 L2--bone mineral density 1.005 g/sq cm; T score -0.2 L3--bone mineral density 0.954 g/sq cm; T score -1.2 L4--bone mineral density 0.958 g/sq cm; T score -0.9 Total L1-L4--bone mineral density 1.007 g/sq cm; T score -0.4 Left femoral neck--bone mineral density0.735; T score -1.0 Total proximal left femur--bone mineral density 0.876; T score -0.5 IMPRESSION: Normal bone density. When compared to the prior examination, the bone density in the spin e has decreased approximately 6% and the bone is seen in the hip has not changed significantly.
--- NOTE | 2020-03-31 08:37 | MMO ---
Bilateral MAMMO Bilat Screen [facility]. CLINICAL HISTORY: Patient is 69 years old and is seen for screening. The patient has no family history of breast cancer. The patient has no personal history of cancer. VIEWS: The views performed were: bilateral craniocaudal with tomosynthesis and bilateral mediolateral oblique with tomosynthesis. FILMS COMPARED: The present examination has been compared to prior imaging studies performed at [facility] on 09/11/2017 and 09/16/2018, and at [facility] on 12/16/2014. This study has been interpreted with the assistance of computer-aided detection. MAMMOGRAM FINDINGS: The breasts are heterogeneously dense, which could obscure a lesion on mammography. There are stable benign appearing calcifications seen in both breasts. There are no suspicious masses, suspicious calcifications, or new areas of architectural distortion. IMPRESSION: THERE IS NO MAMMOGRAPHIC EVIDENCE OF MALIGNANCY. A ROUTINE FOLLOW-UP MAMMOGRAM IN 1 YEAR IS RECOMMENDED. THE RESULTS OF THIS EXAM WERE SENT TO THE PATIENT. ACR BI-RADS Category 2 - Benign finding MAMMOGRAPHY NOTE: 1. A negative mammogram report should not delay a biopsy if a dominant of clinically suspicious mass is present. 2. Approximately 10% to 15% of breast cancers are not detected by mammography. 3. Adenosis and dense breasts may obscure an underlying neoplasm. Reported by: PASCALE MATIAS MD Electonically Signed: [id number]
== END 2020-03-31 07:44 | disposition home or self-care (01) ==
LOC: BICMAMMO 07:43
PROVIDERS: ATTEND Internal Medicine
DX: Z12.31 Encounter for screening mammogram for malignant neoplasm of breast (principal); Z13.820 Encounter for screening for osteoporosis; Z78.0 Asymptomatic menopausal state
CPT/HCPCS: 77063; 77067; 77080

== ENCOUNTER 2020-08-02 13:26 | Outpatient (CLI) | payer MEDICARE, BC ==
[2020-08-02] MEDS ORDERED: Iopamidol 370 76% 100 ML VIAL ONE (14:02)
--- NOTE | 2020-08-02 14:41 | CT ---
CTA Angio Head W WO Con CT brain without contrast History: Reason For Study Comparison: CT angiogram brain July 2019 Findings: CT brain without contrast was performed. Subsequently after the intravenous administration of contrast a CT angiogram of the head and neck was performed. 3-D rendering provided. CT head without contrast: New HERNAN aneurysm clip. No acute hemorrhage or infarct. No midline shift or mass effect. Calvarium is intact. Paranasal sinuses and mastoids are clear. For the CT angiogram portion of the exam the nikolai of M[place] is patent. The previously described rig ht HERNAN aneurysm has been excluded via the clip. The dural venous sinuses are patent. Impression: 1. Excluded right HERNAN aneurysm via new aneurysm clip. 2. No hemodynamic significant stenosis, thrombosis, nor new aneurysm formation of the nikolai of Willi s. 3. No acute hemorrhage or infarct.
== END 2020-08-02 13:27 | disposition home or self-care (01) ==
LOC: BICCT 13:26
PROVIDERS: ATTEND Internal Medicine
DX: R51.9 Headache, unspecified (principal)
CPT/HCPCS: 70496; 82565; Q9967

== ENCOUNTER 2020-09-08 10:05 | Outpatient (CLI) | payer MEDICARE, BC ==
[2020-09-08 12:04] LABS: Mean Corpuscular HGB CONC 32.5 g/dL (32.0-36.0); Mean Corpuscular Hemoglobin 32.3 pg (27.0-33.0); Mean Corpuscular Volume 99.3 fl (81.6-98.3); Platelet Count 414 10x3/uL (150-450); RBC Distribution Width 13.2 % (11.5-14.5); Red Blood Cell (RBC) Count 4.34 10x6/uL (3.90-5.03); White Blood Cell (WBC) Count 10.9 10x3/uL (3.5-10.5)
[2020-09-08 12:15] LABS: Anion Gap 12 mmol/L (10-20); BUN (Urea Nitrogen) 6 mg/dL (9.8-20.1); Calc. Creatinine Clearance 0 mL/min (70-130); Calcium 9.7 mg/dL (7.8-10.44); Carbon Dioxide 30 mmol/L (23-31); Chloride 105 mmol/L (98-107); Glucose 81 mg/dL (83-110); Potassium 4.4 mmol/L (3.5-5.1); Sodium 143 mmol/L (136-145)
[2020-09-08 17:26] LABS: SARS-CoV-2 PCR by NAA Not Detected (NotDetected)
== END 2020-09-08 10:06 | disposition home or self-care (01) ==
LOC: LABBT 10:05
PROVIDERS: ATTEND Anesthesiology Pain Medicine
DX: Z01.812 Encounter for preprocedural laboratory examination (principal); M54.10 Radiculopathy, site unspecified; Z20.822 Contact with and (suspected) exposure to COVID-19
CPT/HCPCS: 80048; 85027; U0003; U0005; 87635

== ENCOUNTER 2020-09-13 09:57 | Day surgery (SDC) | payer MEDICARE, BC ==
[2020-09-12 14:32] VITALS: BMI 24.1
[2020-09-13] MEDS ORDERED: Ondansetron PF 4 MG/2 ML Vial ONE (10:51)
[2020-09-13] MEDS ORDERED: Lidocaine 1% PF 5 ML VIAL ONE (10:51)
[2020-09-13] MEDS ORDERED: Dexamethasone 20 MG/5 ML VIAL ONE (10:51)
[2020-09-13] MEDS ORDERED: Lidocaine 2% PF 5 ML VIAL ONE (12:21)
[2020-09-13] MEDS ORDERED: EPINEPHrine 1 MG/ML AMP ONE (12:21)
[2020-09-13] MEDS ORDERED: Bupivacaine PF 0.5% 30 ML VIAL ONE (12:21)
[2020-09-13] MEDS ORDERED: Fentanyl 100 MCG/2 ML VIAL ONE (12:22)
[2020-09-13] MEDS ORDERED: Propofol 1,000 MG/100 ML VIAL IV ONE (12:22)
--- NOTE | 2020-09-14 07:12 | OP ---
DATE OF PROCEDURE: 09/13/2020 PREOPERATIVE DIAGNOSES: Nonfunctioning cervical and thoracic stimulator. POSTOPERATIVE DIAGNOSES: 1. Removal of cervical spinal cord stimulation leads x2 and anchors x2. 2. Removal of thoracic spinal cord stimulation leads x2 and anchors x2. 3. Removal of internal pulse generator and all connecting wires. ANESTHESIA: TIVA. COMPLICATIONS: None. BLOOD LOSS: Less than 10 mL. SUMMARY: Risks and benefits were discussed, informed consent was obtained, was taken to the OR, prepped and draped in standard fashion. Fluoroscopy was used to identify the anchors for the cervical and thoracic leads and IPG connections in IPG itself. Standard prep and drape with Ioban, 1% lidocaine with 0.5% Marcaine with epinephrine 1:400,000 was used for skin and subcutaneous anesthesia over the posterior thoracic lead anchors for the cervical leads and the thoracic lead anchors for the thoracic leads. Incision was made. Blunt dissection to externalize the anchors 2 in each incision. They were easily identified. All sutures were ligated. Anchors were removed. The leads were subsequently removed intact x2 from the cervical and x2 from the thoracic. Attention was then turned to the IPG. After adequate local anesthesia, incision was made. Blunt dissection down to the IPG itself. Metzenbaum was used for dissection of the scar tissue around the IPG in the pocket and was removed from the pocket intact. Each wire was then carefully threaded through the prior tunneling pocket and removed from the field. All four wires, all four connectors, and all four anchors were removed. The IPG was also removed. All counts were correct x2. Closure was accomplished in layers with 2-0 Vicryl and a running 3-0 subcuticular Rapide for the skin. The patient tolerated the procedures well. There were no complications. Job ID: [id number]
== END 2020-09-13 15:24 | disposition home or self-care (01) ==
LOC: SDC 09:57
PROVIDERS: ATTEND Anesthesiology Pain Medicine
PROC: 01PY0MZ Removal of Neurostimulator Lead from Peripheral Nerve, Open Approach (ICD-10-PCS; principal; 2020-09-13)
DX: G89.4 Chronic pain syndrome (principal); M96.1 Postlaminectomy syndrome, not elsewhere classified; M47.22 Other spondylosis with radiculopathy, cervical region; M48.02 Spinal stenosis, cervical region; E03.9 Hypothyroidism, unspecified; J44.9 Chronic obstructive pulmonary disease, unspecified; E78.5 Hyperlipidemia, unspecified; M79.7 Fibromyalgia; G43.909 Migraine, unspecified, not intractable, without status migrainosus; D51.0 Vitamin B12 deficiency anemia due to intrinsic factor deficiency; M19.90 Unspecified osteoarthritis, unspecified site; I25.119 Atherosclerotic heart disease of native coronary artery with unspecified angina pectoris; Z79.899 Other long term (current) drug therapy; Z88.0 Allergy status to penicillin; Z88.5 Allergy status to narcotic agent; Z88.6 Allergy status to analgesic agent; Z87.891 Personal history of nicotine dependence
CPT/HCPCS: 76000; J0171; J1100; J2001; J2405; J2704; J3010; S0020

== ENCOUNTER 2020-09-27 08:00 | Outpatient (CLI) | payer MEDICARE, BC | END 2020-09-27 08:01 | disposition home or self-care (01) | LOC: BICMRI 08:00 | PROVIDERS: ATTEND Anesthesiology Pain Medicine | DX: M47.22 Other spondylosis with radiculopathy, cervical region (principal); M47.23 Other spondylosis with radiculopathy, cervicothoracic region; I70.90 Unspecified atherosclerosis; Z98.890 Other specified postprocedural states | CPT/HCPCS: 71045; 72020; 72141 ==

== ENCOUNTER 2020-12-16 07:42 | Outpatient (CLI) | payer MEDICARE, BC | END 2020-12-16 07:43 | disposition home or self-care (01) | LOC: BICCT 07:42 | PROVIDERS: ATTEND Internal Medicine | DX: Z12.2 Encounter for screening for malignant neoplasm of respiratory organs (principal); J43.2 Centrilobular emphysema; I25.10 Atherosclerotic heart disease of native coronary artery without angina pectoris; K44.9 Diaphragmatic hernia without obstruction or gangrene; Z87.891 Personal history of nicotine dependence | CPT/HCPCS: 71271 ==

== ENCOUNTER 2021-04-11 08:00 | Outpatient (CLI) | payer MEDICARE, BC | END 2021-04-11 08:01 | disposition home or self-care (01) | LOC: BICMAMMO 08:00 | PROVIDERS: ATTEND Internal Medicine | DX: Z12.31 Encounter for screening mammogram for malignant neoplasm of breast (principal) | CPT/HCPCS: 77063; 77067 ==

== ENCOUNTER 2021-06-19 08:22 | Outpatient (CLI) | payer MEDICARE, BC | END 2021-06-19 08:23 | disposition home or self-care (01) | LOC: BICRAD 08:22 | PROVIDERS: ATTEND Internal Medicine Hematology & Oncology | DX: D47.2 Monoclonal gammopathy (principal); C90.00 Multiple myeloma not having achieved remission | CPT/HCPCS: 77075 ==

== ENCOUNTER 2021-12-21 07:23 | Outpatient (CLI) | payer MEDICARE, BC | END 2021-12-21 07:24 | disposition home or self-care (01) | LOC: BICCT 07:23 | PROVIDERS: ATTEND Internal Medicine | DX: Z12.2 Encounter for screening for malignant neoplasm of respiratory organs (principal); Z87.891 Personal history of nicotine dependence; R91.1 Solitary pulmonary nodule | CPT/HCPCS: 71271 ==

== ENCOUNTER 2022-01-23 15:00 | Outpatient (CLI) | payer MEDICARE, BC | END 2022-01-23 15:01 | disposition home or self-care (01) | LOC: BICCT 15:00 | PROVIDERS: ATTEND Internal Medicine | DX: R51.9 Headache, unspecified (principal) | CPT/HCPCS: 36415; 70450; 80053; 83036; 85025 ==

== ENCOUNTER 2022-04-19 12:33 | Outpatient (CLI) | payer MEDICARE, BC | END 2022-04-19 12:34 | disposition home or self-care (01) | LOC: BICCT 12:33 | PROVIDERS: ATTEND Internal Medicine | DX: R10.9 Unspecified abdominal pain (principal); K57.50 Diverticulosis of both small and large intestine without perforation or abscess without bleeding; R93.3 Abnormal findings on diagnostic imaging of other parts of digestive tract | CPT/HCPCS: 74177; 82565 ==

== ENCOUNTER 2022-04-19 13:15 | Outpatient (CLI) | payer MEDICARE, BC | END 2022-04-19 13:16 | disposition home or self-care (01) | LOC: BICMAMMO 13:15 | PROVIDERS: ATTEND Internal Medicine | DX: Z12.31 Encounter for screening mammogram for malignant neoplasm of breast (principal); Z13.820 Encounter for screening for osteoporosis; Z78.0 Asymptomatic menopausal state; M85.89 Other specified disorders of bone density and structure, multiple sites | CPT/HCPCS: 77063; 77067; 77080 ==

== ENCOUNTER 2023-01-01 12:14 | Outpatient (CLI) | payer MEDICARE, BC | END 2023-01-01 12:15 | disposition home or self-care (01) | LOC: BICRAD 12:14 | PROVIDERS: ATTEND Family Medicine | DX: J40 Bronchitis, not specified as acute or chronic (principal) | CPT/HCPCS: 71046 ==

== ENCOUNTER 2023-05-10 09:02 | Outpatient (CLI) | payer MEDICARE, BC | END 2023-05-10 09:03 | disposition home or self-care (01) | LOC: BICMAMMO 09:02 | PROVIDERS: ATTEND Internal Medicine | DX: Z12.31 Encounter for screening mammogram for malignant neoplasm of breast (principal) | CPT/HCPCS: 77063; 77067 ==

== ENCOUNTER 2023-12-06 16:00 | Outpatient (CLI) | payer MEDICARE | END 2023-12-06 16:01 | disposition home or self-care (01) | LOC: SLEEPLAB 16:00 | PROVIDERS: ATTEND Internal Medicine | DX: G47.33 Obstructive sleep apnea (adult) (pediatric) (principal); R53.83 Other fatigue; R06.83 Snoring; I25.10 Atherosclerotic heart disease of native coronary artery without angina pectoris; G47.10 Hypersomnia, unspecified; K21.9 Gastro-esophageal reflux disease without esophagitis; M79.7 Fibromyalgia; R51.9 Headache, unspecified; G47.00 Insomnia, unspecified; G47.61 Periodic limb movement disorder; I49.3 Ventricular premature depolarization | CPT/HCPCS: 95811 ==

== ENCOUNTER 2023-12-24 09:17 | Outpatient (CLI) | payer MEDICARE | END 2023-12-24 09:18 | disposition home or self-care (01) | LOC: BICRAD 09:17 | PROVIDERS: ATTEND Internal Medicine | DX: J40 Bronchitis, not specified as acute or chronic (principal) | CPT/HCPCS: 71046 ==

== ENCOUNTER 2024-02-03 13:42 | Outpatient (CLI) | payer MEDICARE ==
[~2024-02-03 13:42] MED LIST: GASTROGRAFIN 30 ML BOT ONE; Iopamidol 370 76% 100 ML VIAL ONE
== END 2024-02-03 13:43 | disposition home or self-care (01) ==
LOC: CT 13:42
PROVIDERS: ATTEND Internal Medicine
DX: R10.9 Unspecified abdominal pain (principal); K57.30 Diverticulosis of large intestine without perforation or abscess without bleeding; K83.8 Other specified diseases of biliary tract; J98.11 Atelectasis; E27.9 Disorder of adrenal gland, unspecified; K44.9 Diaphragmatic hernia without obstruction or gangrene; M47.819 Spondylosis without myelopathy or radiculopathy, site unspecified; M43.8X6 Other specified deforming dorsopathies, lumbar region; Z90.49 Acquired absence of other specified parts of digestive tract; Z90.710 Acquired absence of both cervix and uterus; Z98.890 Other specified postprocedural states
CPT/HCPCS: 74177; Q9963; Q9967

== ENCOUNTER 2024-02-05 09:34 | Outpatient (CLI) | payer MEDICARE | END 2024-02-05 09:35 | disposition home or self-care (01) | LOC: BICRAD 09:34 | PROVIDERS: ATTEND Internal Medicine | DX: R10.9 Unspecified abdominal pain (principal) | CPT/HCPCS: 74019 ==

== ENCOUNTER 2024-02-05 14:24 | Outpatient (CLI) | payer MEDICARE | END 2024-02-05 14:25 | disposition home or self-care (01) | LOC: RAD 14:24 | PROVIDERS: ATTEND Internal Medicine Cardiovascular Disease | DX: R06.00 Dyspnea, unspecified (principal); R60.9 Edema, unspecified | CPT/HCPCS: 36415; 71046; 74019; 83880; 84443 ==

== ENCOUNTER 2024-04-10 12:35 | Outpatient (CLI) | payer MEDICARE | END 2024-04-10 12:36 | disposition home or self-care (01) | LOC: MRI 12:35 | PROVIDERS: ATTEND Specialist | DX: M47.24 Other spondylosis with radiculopathy, thoracic region (principal); M47.26 Other spondylosis with radiculopathy, lumbar region; M51.16 Intervertebral disc disorders with radiculopathy, lumbar region; M48.061 Spinal stenosis, lumbar region without neurogenic claudication; M48.07 Spinal stenosis, lumbosacral region; M25.78 Osteophyte, vertebrae; M47.815 Spondylosis without myelopathy or radiculopathy, thoracolumbar region; M48.05 Spinal stenosis, thoracolumbar region; M51.14 Intervertebral disc disorders with radiculopathy, thoracic region; M48.04 Spinal stenosis, thoracic region; K57.30 Diverticulosis of large intestine without perforation or abscess without bleeding; Z98.1 Arthrodesis status | CPT/HCPCS: 72146; 72148 ==

== ENCOUNTER 2024-05-22 10:11 | Outpatient (CLI) | payer MEDICARE | END 2024-05-22 10:12 | disposition home or self-care (01) | LOC: BICMAMMO 10:11 | PROVIDERS: ATTEND Internal Medicine | DX: Z12.31 Encounter for screening mammogram for malignant neoplasm of breast (principal) | CPT/HCPCS: 77063; 77067 ==

== ENCOUNTER 2024-07-29 08:34 | Outpatient (CLI) | payer MEDICARE | END 2024-07-29 08:35 | disposition home or self-care (01) | LOC: BICMAMMO 08:34 | PROVIDERS: ATTEND Internal Medicine | DX: Z78.0 Asymptomatic menopausal state (principal); M85.852 Other specified disorders of bone density and structure, left thigh | CPT/HCPCS: 77080 ==